=== PATIENT | female | born 1960 | race Caucasian/White ===

== ENCOUNTER 2016-09-27 16:47 | Inpatient (IN) | payer OTHER, MEDICAID ==
[~2016-09-27] VITALS: Ht 152.4 cm; Wt 127.9 kg
[2016-09-27 23:30] VITALS: BP 114/69; PULSE 75; RESP 19; TEMP 98.3; O2SAT 99
[2016-09-28] MEDS ORDERED: NACL 0.9% IV PRN (00:45)
[2016-09-28] MEDS ORDERED: [UNRECOGNIZED DRUG - OTHER] IV PRN (00:45)
[2016-09-28] MEDS ORDERED: BISACODYL 10 MG/SUPPOSITORY RC PRN (00:45)
[2016-09-28] MEDS ORDERED: HYDROMORPHONE HCL IV PRN (00:45)
[2016-09-28] MEDS ORDERED: BENZOCAINE/MENTHOL LOZENGE MM PRN (00:45)
[2016-09-28 00:55] VITALS: BP 114/61; PULSE 76; RESP 16; TEMP 98.9; O2SAT 96
[2016-09-28] MEDS ORDERED: DOCU-144 PO (01:05)
[2016-09-28] MEDS ORDERED: HYDR-3109 PO (01:05)
[2016-09-28] MEDS ORDERED: SEN30 PO (01:05)
[2016-09-28] MEDS ORDERED: LACT10SO66 PO (01:05)
[2016-09-28] MEDS ORDERED: BENZ1LOZ30 MM (01:05)
[2016-09-28] MEDS ORDERED: BISA10SU8 RC (01:05)
[2016-09-28] MEDS ORDERED: MIDO10TA PO (01:05)
[2016-09-28] MEDS ORDERED: [UNRECOGNIZED DRUG - CODE] IV (01:05)
[2016-09-28] MEDS ORDERED: SEVE800T8 PO (01:05)
[2016-09-28 05:04] VITALS: BP 121/60; PULSE 75; RESP 18; TEMP 99; O2SAT 100
[2016-09-28 08:00] VITALS: BP 112/64; PULSE 96; RESP 18; TEMP 98.6; O2SAT 99
[2016-09-28 08:01] LABS: BASOPHILS % (AUTO) 0.6 % (0.0-2.0); EOSINOPHILS # (AUTO) 0.1 K/uL (0.0-0.4); EOSINOPHILS % (AUTO) 1.6 % (0.0-4.0); HEMATOCRIT 24.8 % (36-48); HEMOGLOBIN 8.1 g/dL (12.0-16.0); LYMPHOCYTES # (AUTO) 1.8 K/uL (1.0-5.5); LYMPHOCYTES % (AUTO) 26.1 % (20.5-51.5); MEAN CORPUSCULAR HEMOGLOBIN 29 pg (27-31); MEAN CORPUSCULAR HGB CONC 33 % (32-36); MEAN CORPUSCULAR VOLUME 88 fL (79.0-98.0); MONOCYTES # (AUTO) 0.6 K/uL (0.0-1.0); MONOCYTES % (AUTO) 8.4 % (1.7-9.3); NEUTROPHILS # (AUTO) 4.5 K/uL (1.8-7.7); NEUTROPHILS % (AUTO) 63.3 % (40.0-70.0); RED CELL DISTRIBUTION WIDTH 16.4 % (9.0-15.0)
[2016-09-28 08:05] LABS: PLATELET COUNT (AUTO) 103 K/uL (130-430)
[2016-09-28 10:02] LABS: CALCIUM 9.3 mg/dL (8.4-11.0); CREATININE 4.42 mg/dL (0.55-1.30); POTASSIUM 4.5 mmol/L (3.5-5.1); TOTAL BILIRUBIN 0.8 mg/dL (0.0-1.0)
[2016-09-28 10:03] LABS: ALBUMIN 2.2 g/dL (3.4-4.8); TOTAL PROTEIN, SERUM 5.8 g/dL (6.4-8.3)
[2016-09-28] MEDS: HYDROcodone/ACETAMIN 10-325 MG TAB PO PRN ×3 (12:20→18:05)
[2016-09-28] MEDS: SEVELAMER HCL 800 MG TABLET PO SCH ×2 (12:20→17:29)
[2016-09-28 12:35] VITALS: BP 117/59; PULSE 91; RESP 17; TEMP 98.7; O2SAT 97
[2016-09-28] MEDS: LACTULOSE 20 GM/30 ML UDC PO SCH ×2 (14:00→22:00)
[2016-09-28] MEDS ORDERED: NYSTATIN 500,000 UNITS/5 ML UDC PO ONE (14:30)
[2016-09-28] MEDS: MIDODRINE HCL 5 MG TABLET (PROAMATINE) PO SCH ×2 (14:32→22:36)
[2016-09-28 15:05] VITALS: Ht 152.4 cm; Wt 127.9 kg
[2016-09-28] MEDS: PIPERACILLIN/TAZO 2.25G/DEX-IS 50 ML IV SCH ×3 (15:38→22:47)
[2016-09-28 16:29] VITALS: BP 120/61; PULSE 89; RESP 18; TEMP 98.6; O2SAT 98
[2016-09-28] MEDS: VANCOMYCIN HCL 1,000 MG in NS 250 ML IV SCH (16:32)
[2016-09-28] MEDS: NYSTATIN 500,000 UNITS/5 ML UDC PO SCH (17:30)
[2016-09-28 19:55] VITALS: BP 115/60; PULSE 82; RESP 20; TEMP 97.9; O2SAT 82
[2016-09-28] MEDS ORDERED: DIATR MEGLU/DIATRIZ SOD 30 ML SOLUTION PO ONE (20:27)
[2016-09-28] MEDS: DOCUSATE SODIUM 100 MG CAPSULE PO SCH (21:00)
[2016-09-28] MEDS: CINACALCET HCL 30 MG TABLET PO SCH (22:37)
[2016-09-28] MEDS: LACTOBACILLUS RHAMNOSUS GG 1 CAP CAPSULE PO SCH (22:37)
[2016-09-28] MEDS: HYDROmorphone 1 MG INJ. 1 MG/ML AMPUL IVP PRN (22:47)
[2016-09-29] VITALS (7 sets, daily range): BP systolic 104–137; BP diastolic 50–102; PULSE 76–91; RESP 18–20; TEMP 97.8–98.9; O2SAT 98–100
[2016-09-29] MEDS: HYDROcodone/ACETAMIN 10-325 MG TAB PO PRN ×3 (00:53→18:55)
[2016-09-29] MEDS: LACTULOSE 20 GM/30 ML UDC PO SCH ×3 (06:00→22:00)
[2016-09-29] MEDS: NYSTATIN 500,000 UNITS/5 ML UDC PO SCH ×4 (06:00→18:00)
[2016-09-29] MEDS: PIPERACILLIN/TAZO 2.25G/DEX-IS 50 ML IV SCH ×3 (06:56→17:42)
[2016-09-29] MEDS ORDERED: DIATR MEGLU/DIATRIZ SOD 30 ML SOLUTION PO ONE (07:22)
[2016-09-29 07:28] LABS: BASOPHILS # (AUTO) 0.1 K/uL (0.0-0.2); BASOPHILS % (AUTO) 0.8 % (0.0-2.0); EOSINOPHILS # (AUTO) 0.1 K/uL (0.0-0.4); EOSINOPHILS % (AUTO) 1.8 % (0.0-4.0); HEMATOCRIT 24.4 % (36-48); HEMOGLOBIN 8.1 g/dL (12.0-16.0); LYMPHOCYTES # (AUTO) 1.7 K/uL (1.0-5.5); LYMPHOCYTES % (AUTO) 25.4 % (20.5-51.5); MEAN CORPUSCULAR HEMOGLOBIN 30 pg (27-31); MEAN CORPUSCULAR HGB CONC 33 % (32-36); MEAN CORPUSCULAR VOLUME 89 fL (79.0-98.0); MONOCYTES # (AUTO) 0.7 K/uL (0.0-1.0); MONOCYTES % (AUTO) 10.1 % (1.7-9.3); NEUTROPHILS # (AUTO) 4.2 K/uL (1.8-7.7); NEUTROPHILS % (AUTO) 61.9 % (40.0-70.0); PLATELET COUNT (AUTO) 104 K/uL (130-430); RED BLOOD CELL COUNT(AUTO) 2.74 MIL/uL (4.2-6.2); RED CELL DISTRIBUTION WIDTH 16.9 % (9.0-15.0); WHITE BLOOD COUNT (AUTO) 6.8 K/uL (4.8-10.8)
[2016-09-29 07:43] LABS: CALCIUM 8.7 mg/dL (8.4-11.0); CREATININE 4.15 mg/dL (0.55-1.30); POTASSIUM 4.4 mmol/L (3.5-5.1)
[2016-09-29 07:50] LABS: ALBUMIN 2.2 g/dL (3.4-4.8); TOTAL BILIRUBIN 0.5 mg/dL (0.0-1.0)
[2016-09-29] MEDS: SEVELAMER HCL 800 MG TABLET PO SCH ×3 (10:14→18:56)
[2016-09-29] MEDS: CINACALCET HCL 30 MG TABLET PO SCH ×2 (10:14→22:02)
[2016-09-29] MEDS: LACTOBACILLUS RHAMNOSUS GG 1 CAP CAPSULE PO SCH ×2 (10:14→22:01)
[2016-09-29] MEDS: MIDODRINE HCL 5 MG TABLET (PROAMATINE) PO SCH ×3 (10:14→22:03)
[2016-09-29] MEDS: DOCUSATE SODIUM 100 MG CAPSULE PO SCH ×2 (10:14→22:01)
[2016-09-29] MEDS ORDERED: HEPARIN SODIUM,PORCINE 5000 UNITS/ML VIAL IV ONE (12:30)
[2016-09-30] MEDS: HYDROmorphone 1 MG INJ. 1 MG/ML AMPUL IVP PRN ×3 (02:55→20:34)
[2016-09-30 03:58] VITALS: BP 113/68; PULSE 82; RESP 18; TEMP 97.4; O2SAT 100
[2016-09-30] MEDS: HYDROcodone/ACETAMIN 10-325 MG TAB PO PRN ×2 (05:12→09:39)
[2016-09-30] MEDS: LACTULOSE 20 GM/30 ML UDC PO SCH ×3 (06:00→20:47)
[2016-09-30] MEDS: NYSTATIN 500,000 UNITS/5 ML UDC PO SCH ×5 (06:00→23:56)
[2016-09-30] MEDS: PIPERACILLIN/TAZO 2.25G/DEX-IS 50 ML IV SCH ×5 (06:36→23:55)
[2016-09-30 06:52] LABS: BASOPHILS % (AUTO) 0.7 % (0.0-2.0); EOSINOPHILS # (AUTO) 0.1 K/uL (0.0-0.4); EOSINOPHILS % (AUTO) 1.9 % (0.0-4.0); HEMATOCRIT 26.4 % (36-48); HEMOGLOBIN 8.5 g/dL (12.0-16.0); LYMPHOCYTES # (AUTO) 1.6 K/uL (1.0-5.5); LYMPHOCYTES % (AUTO) 24.9 % (20.5-51.5); MEAN CORPUSCULAR HEMOGLOBIN 29 pg (27-31); MEAN CORPUSCULAR HGB CONC 32 % (32-36); MEAN CORPUSCULAR VOLUME 90 fL (79.0-98.0); MONOCYTES # (AUTO) 0.6 K/uL (0.0-1.0); MONOCYTES % (AUTO) 8.6 % (1.7-9.3); NEUTROPHILS # (AUTO) 4.1 K/uL (1.8-7.7); NEUTROPHILS % (AUTO) 63.9 % (40.0-70.0); PLATELET COUNT (AUTO) 94 K/uL (130-430); RED BLOOD CELL COUNT(AUTO) 2.93 MIL/uL (4.2-6.2); RED CELL DISTRIBUTION WIDTH 17.3 % (9.0-15.0); WHITE BLOOD COUNT (AUTO) 6.4 K/uL (4.8-10.8)
[2016-09-30 06:56] LABS: CALCIUM 9.2 mg/dL (8.4-11.0); CREATININE 4.98 mg/dL (0.55-1.30)
[2016-09-30] MEDS ORDERED: HEPARIN SODIUM,PORCINE 5000 UNITS/ML VIAL ONE (09:14)
[2016-09-30] MEDS: MIDODRINE HCL 5 MG TABLET (PROAMATINE) PO SCH ×3 (09:40→20:47)
[2016-09-30] MEDS: CINACALCET HCL 30 MG TABLET PO SCH ×2 (09:40→20:47)
[2016-09-30] MEDS: DOCUSATE SODIUM 100 MG CAPSULE PO SCH ×2 (09:40→20:46)
[2016-09-30] MEDS: LACTOBACILLUS RHAMNOSUS GG 1 CAP CAPSULE PO SCH ×2 (09:40→20:46)
[2016-09-30] MEDS: SEVELAMER HCL 800 MG TABLET PO SCH ×3 (09:42→18:00)
[2016-09-30 12:04] VITALS: BP 112/62; PULSE 80; RESP 18; TEMP 97.8; O2SAT 100
[2016-09-30 16:07] VITALS: BP 120/59; PULSE 91; RESP 20; TEMP 98.7; O2SAT 100
[2016-09-30 19:00] VITALS: BP 113/61; PULSE 61; RESP 16; TEMP 98.3; O2SAT 95
[2016-09-30 20:00] VITALS: BP 113/61; PULSE 61; RESP 16; TEMP 98.3; O2SAT 95
[2016-09-30] MEDS ORDERED: ZOLPIDEM TARTRATE 5 MG TABLET PO PRN (23:15)
[2016-09-30] MEDS: LORazepam 2 MG/ML VIAL IVP PRN (23:57)
[2016-10-01] MEDS: HYDROmorphone 1 MG INJ. 1 MG/ML AMPUL IVP PRN ×3 (03:49→21:51)
[2016-10-01] MEDS: PIPERACILLIN/TAZO 2.25G/DEX-IS 50 ML IV SCH ×4 (05:56→23:21)
[2016-10-01] MEDS: LACTULOSE 20 GM/30 ML UDC PO SCH ×4 (05:57→21:59)
[2016-10-01] MEDS: NYSTATIN 500,000 UNITS/5 ML UDC PO SCH ×4 (05:58→23:21)
[2016-10-01 06:04] VITALS: BP 121/60; PULSE 102; RESP 20; TEMP 97.7; O2SAT 100
[2016-10-01 07:26] LABS: CALCIUM 8.6 mg/dL (8.4-11.0); CREATININE 5.34 mg/dL (0.55-1.30); POTASSIUM 5.1 mmol/L (3.5-5.1)
[2016-10-01 07:39] LABS: BASOPHILS % (AUTO) 0.7 % (0.0-2.0); EOSINOPHILS # (AUTO) 0.1 K/uL (0.0-0.4); EOSINOPHILS % (AUTO) 1.7 % (0.0-4.0); HEMATOCRIT 24.4 % (36-48); LYMPHOCYTES # (AUTO) 1.7 K/uL (1.0-5.5); LYMPHOCYTES % (AUTO) 25.1 % (20.5-51.5); MEAN CORPUSCULAR HEMOGLOBIN 29 pg (27-31); MEAN CORPUSCULAR HGB CONC 32 % (32-36); MEAN CORPUSCULAR VOLUME 90 fL (79.0-98.0); MONOCYTES # (AUTO) 0.6 K/uL (0.0-1.0); MONOCYTES % (AUTO) 9.1 % (1.7-9.3); NEUTROPHILS # (AUTO) 4.4 K/uL (1.8-7.7); NEUTROPHILS % (AUTO) 63.4 % (40.0-70.0); RED BLOOD CELL COUNT(AUTO) 2.71 MIL/uL (4.2-6.2); RED CELL DISTRIBUTION WIDTH 17.5 % (9.0-15.0); WHITE BLOOD COUNT (AUTO) 6.8 K/uL (4.8-10.8)
[2016-10-01 07:44] LABS: HEMOGLOBIN 7.8 g/dL (12.0-16.0)
[2016-10-01 09:24] LABS: PLATELET COUNT (AUTO) 94 K/uL (130-430)
[2016-10-01] MEDS: LACTOBACILLUS RHAMNOSUS GG 1 CAP CAPSULE PO SCH ×2 (09:29→21:14)
[2016-10-01] MEDS: DOCUSATE SODIUM 100 MG CAPSULE PO SCH ×2 (09:29→21:15)
[2016-10-01] MEDS: SEVELAMER HCL 800 MG TABLET PO SCH ×3 (09:29→18:21)
[2016-10-01] MEDS: CINACALCET HCL 30 MG TABLET PO SCH ×2 (09:30→21:14)
[2016-10-01] MEDS: MIDODRINE HCL 5 MG TABLET (PROAMATINE) PO SCH ×3 (09:30→21:15)
[2016-10-01] MEDS: HYDROcodone/ACETAMIN 10-325 MG TAB PO PRN ×2 (09:31→18:24)
[2016-10-01 12:00] VITALS: BP 124/67; PULSE 97; RESP 20; TEMP 98.6; O2SAT 98
[2016-10-01 15:41] LABS: INR 1.1 (0.8-1.2)
[2016-10-01 16:00] VITALS: BP 146/77; PULSE 89; RESP 20; TEMP 97.4; O2SAT 99
[2016-10-01 20:00] VITALS: BP 127/73; PULSE 100; RESP 19; TEMP 97.9; O2SAT 98
[2016-10-01] MEDS: BALSAM PERU/CASTOR OIL 60 GM OINT...G. TP SCH (20:30)
[2016-10-02] VITALS (7 sets, daily range): BP systolic 128–148; BP diastolic 70–79; PULSE 76–97; RESP 15–20; TEMP 97.3–98.9; O2SAT 97–100
[2016-10-02] MEDS: LORazepam 2 MG/ML VIAL IVP PRN (00:34)
[2016-10-02] MEDS: HYDROmorphone 1 MG INJ. 1 MG/ML AMPUL IVP PRN ×3 (04:58→21:30)
[2016-10-02] MEDS: LACTULOSE 20 GM/30 ML UDC PO SCH ×3 (05:06→21:33)
[2016-10-02] MEDS: PIPERACILLIN/TAZO 2.25G/DEX-IS 50 ML IV SCH ×2 (05:08→18:20)
[2016-10-02] MEDS: NYSTATIN 500,000 UNITS/5 ML UDC PO SCH ×3 (05:08→18:00)
[2016-10-02 06:02] LABS: HEPATITIS A AB, IgM Negative (Negative); HEPATITIS B CORE AB, IgM Negative (Negative); HEPATITIS B SURFACE AG Negative (Negative)
[2016-10-02] MEDS: SEVELAMER HCL 800 MG TABLET PO SCH ×3 (08:00→18:37)
[2016-10-02] MEDS: BALSAM PERU/CASTOR OIL 60 GM OINT...G. TP SCH (09:00)
[2016-10-02] MEDS: LACTOBACILLUS RHAMNOSUS GG 1 CAP CAPSULE PO SCH ×2 (09:00→21:30)
[2016-10-02] MEDS: CINACALCET HCL 30 MG TABLET PO SCH ×2 (09:00→21:31)
[2016-10-02] MEDS: DOCUSATE SODIUM 100 MG CAPSULE PO SCH ×2 (09:00→21:31)
[2016-10-02] MEDS: MIDODRINE HCL 5 MG TABLET (PROAMATINE) PO SCH ×3 (09:00→21:32)
[2016-10-02] MEDS ORDERED: HEPARIN SODIUM,PORCINE 5000 UNITS/ML VIAL IVP ONE ×2 (13:00→13:30)
[2016-10-02] MEDS ORDERED: HEPARIN SODIUM,PORCINE 5000 UNITS/ML VIAL ONE (13:23)
[2016-10-02] MEDS: HYDROcodone/ACETAMIN 10-325 MG TAB PO PRN (17:01)
[2016-10-02 17:46] LABS: INR 1.5 (0.8-1.2); PROTHROMBIN TIME 16.9 SECS (9.5-12.5)
[2016-10-02] MEDS: VANCOMYCIN HCL 1,000 MG in NS 250 ML IV SCH (18:23)
[2016-10-03] VITALS (7 sets, daily range): BP systolic 113–151; BP diastolic 67–85; PULSE 72–93; RESP 18–21; TEMP 97–98.2; O2SAT 95–100
[2016-10-03] MEDS: PIPERACILLIN/TAZO 2.25G/DEX-IS 50 ML IV SCH ×5 (00:05→23:08)
[2016-10-03] MEDS: NYSTATIN 500,000 UNITS/5 ML UDC PO SCH ×4 (00:05→17:25)
[2016-10-03] MEDS: LORazepam 2 MG/ML VIAL IVP PRN (00:07)
[2016-10-03] MEDS: LACTULOSE 20 GM/30 ML UDC PO SCH ×3 (05:45→22:06)
[2016-10-03] MEDS: HYDROmorphone 1 MG INJ. 1 MG/ML AMPUL IVP PRN ×3 (05:46→19:57)
[2016-10-03] MEDS: CINACALCET HCL 30 MG TABLET PO SCH ×2 (08:45→21:18)
[2016-10-03] MEDS: DOCUSATE SODIUM 100 MG CAPSULE PO SCH ×2 (08:45→21:19)
[2016-10-03] MEDS: LACTOBACILLUS RHAMNOSUS GG 1 CAP CAPSULE PO SCH (08:45)
[2016-10-03] MEDS: MIDODRINE HCL 5 MG TABLET (PROAMATINE) PO SCH ×3 (08:45→21:18)
[2016-10-03] MEDS: HYDROcodone/ACETAMIN 10-325 MG TAB PO PRN (08:52)
[2016-10-03] MEDS: SEVELAMER HCL 800 MG TABLET PO SCH ×2 (12:00→17:25)
[2016-10-03] MEDS: BALSAM PERU/CASTOR OIL 60 GM OINT...G. TP SCH (12:09)
[2016-10-04] VITALS (7 sets, daily range): BP systolic 113–152; BP diastolic 71–78; PULSE 65–98; RESP 18–20; TEMP 96.9–99.8; O2SAT 93–100
[2016-10-04] MEDS: NYSTATIN 500,000 UNITS/5 ML UDC PO SCH ×4 (00:10→17:44)
[2016-10-04] MEDS: HYDROmorphone 1 MG INJ. 1 MG/ML AMPUL IVP PRN ×2 (03:17→17:44)
[2016-10-04] MEDS: PIPERACILLIN/TAZO 2.25G/DEX-IS 50 ML IV SCH ×4 (05:09→23:08)
[2016-10-04] MEDS: LACTULOSE 20 GM/30 ML UDC PO SCH ×3 (05:36→21:46)
[2016-10-04 07:22] LABS: BASOPHILS % (AUTO) 0.7 % (0.0-2.0); EOSINOPHILS # (AUTO) 0.1 K/uL (0.0-0.4); EOSINOPHILS % (AUTO) 2.3 % (0.0-4.0); HEMOGLOBIN 9.4 g/dL (12.0-16.0); LYMPHOCYTES # (AUTO) 1.3 K/uL (1.0-5.5); LYMPHOCYTES % (AUTO) 20.1 % (20.5-51.5); MEAN CORPUSCULAR HEMOGLOBIN 29 pg (27-31); MEAN CORPUSCULAR HGB CONC 34 % (32-36); MEAN CORPUSCULAR VOLUME 86 fL (79.0-98.0); MONOCYTES # (AUTO) 0.7 K/uL (0.0-1.0); MONOCYTES % (AUTO) 10.6 % (1.7-9.3); NEUTROPHILS # (AUTO) 4.1 K/uL (1.8-7.7); NEUTROPHILS % (AUTO) 66.3 % (40.0-70.0); PLATELET COUNT (AUTO) 105 K/uL (130-430); RED BLOOD CELL COUNT(AUTO) 3.27 MIL/uL (4.2-6.2); RED CELL DISTRIBUTION WIDTH 18.7 % (9.0-15.0); WHITE BLOOD COUNT (AUTO) 6.2 K/uL (4.8-10.8)
[2016-10-04] MEDS: SEVELAMER HCL 800 MG TABLET PO SCH ×3 (08:00→17:51)
[2016-10-04 08:08] LABS: ALBUMIN 2.1 g/dL (3.4-4.8); CALCIUM 9.2 mg/dL (8.4-11.0); CREATININE 4.56 mg/dL (0.55-1.30); POTASSIUM 4.9 mmol/L (3.5-5.1); TOTAL BILIRUBIN 0.6 mg/dL (0.0-1.0); TOTAL PROTEIN, SERUM 6.5 g/dL (6.4-8.3)
[2016-10-04] MEDS: CINACALCET HCL 30 MG TABLET PO SCH ×2 (10:00→20:49)
[2016-10-04] MEDS: DOCUSATE SODIUM 100 MG CAPSULE PO SCH ×2 (10:00→20:49)
[2016-10-04] MEDS: MIDODRINE HCL 5 MG TABLET (PROAMATINE) PO SCH ×3 (10:00→20:49)
[2016-10-04] MEDS: BALSAM PERU/CASTOR OIL 60 GM OINT...G. TP SCH (10:05)
[2016-10-04] MEDS: LORazepam 2 MG/ML VIAL IVP PRN ×2 (12:21→17:50)
[2016-10-05] MEDS: HYDROmorphone 1 MG INJ. 1 MG/ML AMPUL IVP PRN ×3 (03:17→16:35)
[2016-10-05] MEDS: LORazepam 2 MG/ML VIAL IVP PRN ×3 (04:16→21:01)
[2016-10-05] MEDS: PIPERACILLIN/TAZO 2.25G/DEX-IS 50 ML IV SCH ×3 (05:05→17:36)
[2016-10-05] MEDS: LACTULOSE 20 GM/30 ML UDC PO SCH ×3 (05:18→21:00)
[2016-10-05] MEDS: NYSTATIN 500,000 UNITS/5 ML UDC PO SCH ×2 (05:18)
[2016-10-05] MEDS: SEVELAMER HCL 800 MG TABLET PO SCH ×3 (08:54→17:36)
[2016-10-05] MEDS: CINACALCET HCL 30 MG TABLET PO SCH ×2 (08:54→21:01)
[2016-10-05] MEDS: DOCUSATE SODIUM 100 MG CAPSULE PO SCH ×2 (08:54→21:00)
[2016-10-05] MEDS: MIDODRINE HCL 5 MG TABLET (PROAMATINE) PO SCH ×3 (08:54→21:00)
[2016-10-05 12:45] VITALS: BP 136/67; PULSE 95; RESP 18; TEMP 98; O2SAT 99
[2016-10-05] MEDS: BALSAM PERU/CASTOR OIL 60 GM OINT...G. TP SCH (16:18)
[2016-10-05 16:22] VITALS: BP 109/73; PULSE 96; RESP 17; TEMP 98.1; O2SAT 98
[2016-10-05] MEDS: HYDROcodone/ACETAMIN 10-325 MG TAB PO PRN (18:19)
[2016-10-05 20:00] VITALS: BP 113/68; PULSE 97; RESP 18; TEMP 98.3; O2SAT 97
[2016-10-06 00:08] VITALS: BP 140/66; PULSE 88; RESP 18; TEMP 99.2; O2SAT 98
[2016-10-06] MEDS: PIPERACILLIN/TAZO 2.25G/DEX-IS 50 ML IV SCH ×4 (00:17→17:21)
[2016-10-06] MEDS: HYDROmorphone 1 MG INJ. 1 MG/ML AMPUL IVP PRN ×4 (03:00→20:25)
[2016-10-06 03:35] VITALS: BP 125/72; PULSE 96; RESP 18; TEMP 96.2; O2SAT 98
[2016-10-06] MEDS: LACTULOSE 20 GM/30 ML UDC PO SCH ×3 (05:45→20:59)
[2016-10-06] MEDS: HYDROcodone/ACETAMIN 10-325 MG TAB PO PRN (07:27)
[2016-10-06 08:00] VITALS: BP 146/84; PULSE 98; RESP 17; TEMP 98; O2SAT 98
[2016-10-06] MEDS: MIDODRINE HCL 5 MG TABLET (PROAMATINE) PO SCH ×3 (08:56→20:58)
[2016-10-06] MEDS: CINACALCET HCL 30 MG TABLET PO SCH ×2 (08:56→20:58)
[2016-10-06] MEDS: DOCUSATE SODIUM 100 MG CAPSULE PO SCH ×2 (08:56→20:58)
[2016-10-06] MEDS: SEVELAMER HCL 800 MG TABLET PO SCH ×3 (08:56→17:21)
[2016-10-06] MEDS: BALSAM PERU/CASTOR OIL 60 GM OINT...G. TP SCH (10:21)
[2016-10-06] MEDS: LORazepam 2 MG/ML VIAL IVP PRN ×2 (10:21→21:02)
[2016-10-06 11:23] VITALS: BP 123/66; PULSE 85; RESP 16; TEMP 98.3; O2SAT 100
[2016-10-06] MEDS: VANCOMYCIN HCL 1,000 MG in NS 250 ML IV SCH (14:44)
[2016-10-06 15:39] VITALS: BP 114/65; PULSE 94; RESP 16; TEMP 98.2; O2SAT 100
[2016-10-07] VITALS (7 sets, daily range): BP systolic 100–150; BP diastolic 60–77; PULSE 78–98; RESP 18–20; TEMP 97–98; O2SAT 93–100
[2016-10-07] MEDS: PIPERACILLIN/TAZO 2.25G/DEX-IS 50 ML IV SCH ×4 (01:10→17:20)
[2016-10-07] MEDS: HYDROcodone/ACETAMIN 10-325 MG TAB PO PRN ×3 (01:11→21:35)
[2016-10-07] MEDS: LACTULOSE 20 GM/30 ML UDC PO SCH ×3 (05:10→21:20)
[2016-10-07] MEDS: HYDROmorphone 1 MG INJ. 1 MG/ML AMPUL IVP PRN ×3 (05:12→17:21)
[2016-10-07] MEDS: LORazepam 2 MG/ML VIAL IVP PRN ×2 (06:53→17:20)
[2016-10-07 07:51] LABS: ALBUMIN 1.7 g/dL (3.4-4.8); CREATININE 4.75 mg/dL (0.55-1.30); POTASSIUM 5.1 mmol/L (3.5-5.1); TOTAL BILIRUBIN 0.5 mg/dL (0.0-1.0); TOTAL PROTEIN, SERUM 5.8 g/dL (6.4-8.3)
[2016-10-07] MEDS: MIDODRINE HCL 5 MG TABLET (PROAMATINE) PO SCH ×3 (09:21→21:20)
[2016-10-07] MEDS: DOCUSATE SODIUM 100 MG CAPSULE PO SCH ×2 (09:21→21:21)
[2016-10-07] MEDS: CINACALCET HCL 30 MG TABLET PO SCH ×2 (09:21→21:21)
[2016-10-07] MEDS: BALSAM PERU/CASTOR OIL 60 GM OINT...G. TP SCH (09:22)
[2016-10-07] MEDS: SEVELAMER HCL 800 MG TABLET PO SCH ×3 (09:22→18:00)
== END 2016-10-07 23:15 | DRG 602 ==
LOC: SMU 23:27
PROVIDERS: ADMIT Family Medicine; ATTEND Family Medicine
PROC: 5A1D60Z (ICD-10-PCS; principal; 2016-09-28)
PROC: 30233N1 Transfusion of Nonautologous Red Blood Cells into Peripheral Vein, Percutaneous Approach (ICD-10-PCS; 2016-10-01)
PROC: 02HV33Z Insertion of Infusion Device into Superior Vena Cava, Percutaneous Approach (ICD-10-PCS; 2016-10-01)
PROC: 02PY33Z Removal of Infusion Device from Great Vessel, Percutaneous Approach (ICD-10-PCS; 2016-10-02)
PROC: 02HV33Z Insertion of Infusion Device into Superior Vena Cava, Percutaneous Approach (ICD-10-PCS; 2016-10-02)
PROC: B548ZZA Ultrasonography of Superior Vena Cava, Guidance (ICD-10-PCS; 2016-10-02)
DX: L03.311 Cellulitis of abdominal wall (principal); E43 Unspecified severe protein-calorie malnutrition; N18.6 End stage renal disease; I12.0 Hypertensive chronic kidney disease with stage 5 chronic kidney disease or end stage renal disease; L03.115 Cellulitis of right lower limb; L03.116 Cellulitis of left lower limb; Z68.43 Body mass index [BMI] 50.0-59.9, adult; T85.618A Breakdown (mechanical) of other specified internal prosthetic devices, implants and grafts, initial encounter; D69.6 Thrombocytopenia, unspecified; E83.59 Other disorders of calcium metabolism; N95.0 Postmenopausal bleeding; E66.01 Morbid (severe) obesity due to excess calories; D64.9 Anemia, unspecified; E11.22 Type 2 diabetes mellitus with diabetic chronic kidney disease; M19.90 Unspecified osteoarthritis, unspecified site; Z96.659 Presence of unspecified artificial knee joint; Z87.891 Personal history of nicotine dependence; Z90.49 Acquired absence of other specified parts of digestive tract; Z99.2 Dependence on renal dialysis
CPT/HCPCS: 36415; 71010; 76856-TC; 80048; 80053; 80074; 80202-TC; 85025; 85610-TC; 85730-TC; 86886; 86900; 86901; 86920; 87081; 90935; 90937; 93005; 93971; A6209; C1751; G0365; J1170; J1644; J2060; J2543; J3370; J7030; J7050; P9021; Q9964